=== PATIENT | female | born 1980 | race Caucasian/White ===

== ENCOUNTER 2016-12-11 21:41 | Emergency (ER) | payer OTHER ==
[2016-12-11 21:51] VITALS: BMI 22.1
--- NOTE | 2016-12-11 22:47 | PDOC ---
History of Present Illness - General History Source: Patient <Allen Ma - Last Filed: 12/12/16 00:37> - General History Source: Patient Exam Limitations: No Limitations - History of Present Illness Initial Comments: 12/11/16 23:08 The patient is a 36 year old 10.5 weeks female(), with no significant past medical history, who presents to the emergency department complaining of vaginal bleeding earlier this evening. The patient reports she was sitting at dinner with her , after which she got up and felt a gush of blood roll down her leg. The patient denies any heavy lifting or sexual relations prior. The patient reports she is not currently bleeding. She states she had an US with her OB/ TUBE CUTTER at 6 weeks, which showed a heart rate. The patient denies any associated abdominal pain, nausea, vomiting, diarrhea, or constipation. The patient denies any dysuria, hematuria, frequency, or urgency. Allergies: None reported. Past Surgical History: None reported. Social History: Non-smoker. Denies alcohol or drug use. <Fabby Camarena - Last Filed: 12/12/16 00:42> - General Chief Complaint: Vaginal Bleeding Stated Complaint: VAGINAL BLEEDING/10 WKS Time Seen by Provider: 12/11/16 21:48 Past History - Psycho/Social/Smoking Cessation Hx Suicidal Ideation: No Smoking History: Never smoked Have you smoked in the past 12 months: No Number of Cigarettes Smoked Daily: 0 Information on smoking cessation initiated: No Hx Alcohol Use: No Drug/Substance Use Hx: No <Allen Ma - Last Filed: 12/12/16 00:37> <Fabby Camarena - Last Filed: 12/12/16 00:42> - Past Medical History Allergies/Adverse Reactions: Allergies Allergy/AdvReac Type Severity Reaction Status Date / Time No Known Allergies Allergy Verified 12/11/16 21:49 Home Medications: Ambulatory Orders Pnv95/Ferrous Fumarate/FA [ Caplet] 1 tab PO DAILY 12/11/16 Review of Systems - Review of Systems Able to Perform ROS?: Yes Comments:: 12/11/16 23:09 CONSTITUTIONAL: Absent: fever, no chills, no fatigue EYES: Absent: visual changes ENT: Absent: ear pain, no sore throat CARDIOVASCULAR: Absent: chest pain, no palpitations RESPIRATORY: Absent: cough, no SOB GI: Absent: abdominal pain, no nausea, no vomiting, no constipation, no diarrhea GENITOURINARY: Present: +vaginal bleeding Absent: dysuria, no frequency, no hematuria MUSKULOSKELETAL: Absent: back pain, no arthralgia, no myalgia SKIN: Absent: rash NEURO: Absent: headache <Yvette Camarenakunalmeaghan - Last Filed: 12/12/16 00:42> *Physical Exam - Vital Signs Last Vital Signs Temp Pulse Resp BP Pulse Ox 98.0 F 59 L 14 125/72 98 12/11/16 21:49 12/11/16 21:49 12/11/16 21:49 12/11/16 21:49 12/11/16 21:49 <Allen Ma - Last Filed: 12/12/16 00:37> - Vital Signs Last Vital Signs Temp Pulse Resp BP Pulse Ox 98.0 F 59 L 14 125/72 98 12/11/16 21:49 12/11/16 21:49 12/11/16 21:49 12/11/16 21:49 12/11/16 21:49 - Physical Exam Comments: 12/11/16 23:09 GENERAL: Well-appearing, well-nourished. No apparent distress. HEENT: Normocephalic, atraumatic. PERRL, EOM intact. CARDIOVASCULAR: Normal S1, S2. Regular rate and rhythm. PULMONARY: Clear to auscultation bilaterally. ABDOMEN: Soft, non-distended, non-tender. EXTREMITIES: Normal ROM in all four extremities. No gross deformities. SKIN: Warm, dry. No rash NEUROLOGICAL: No focal neurological deficits. <Fabby Camarena - Last Filed: 12/12/16 00:42> ED Treatment Course - LABORATORY CBC & Chemistry Diagram: 12/11/16 23:15 12/11/16 23:15 <Allen Ma - Last Filed: 12/12/16 00:37> - LABORATORY CBC & Chemistry Diagram: 12/11/16 23:15 12/11/16 23:15 - RADIOLOGY Radiograph Interpretation: 12/12/16 00:35 EXAM: Pelvic US INTERPRETED BY: Dr. Segovia REVIEWED BY: Dr. Ma IMPRESSION: There is a single live intrauterine gestation. heart rate 175 beats per minute. Approximate age of 10 weeks, 5 days by mean crown-rump length of 3.78 cm. Amniotic fluid volume appears adequate. No evidence of subchorionic hemorrhage. There is a left ovarian cyst measuring 2.8 x 1.8 x 2.0 cm. Small follicle noted in the right ovary measuring 1.2 cm. There is flow present in both ovaries on color Doppler evaluation. No adnexal masses visualized. No free fluid. <Fabby Camarena - Last Filed: 12/12/16 00:42> Medical Decision Making - Medical Decision Making 12/12/16 00:38 Dr. Ma: The scribe's documentation has been prepared under my direction and personally reviewed by me in its entirery. I confirm that the note above accurately reflects all work, treatment, procedures, and medical decision making performed by me. patient with IUP 10 weeks 5 days. patient will be discharged follow up with her MECHANIC DRIVER <Allen Ma - Last Filed: 12/12/16 00:37> *DC/Admit/Observation/Transfer - Discharge Dispostion Admit: No <Allen Ma - Last Filed: 12/12/16 00:37> - Attestations Scribe Attestion: 12/11/16 23:09 Documentation prepared by Fabby Camarena, acting as medical appliance maker for Allen Ma DO. <Fabby Camarena - Last Filed: 12/12/16 00:42> Diagnosis at time of Disposition: Vaginal bleeding Qualifiers: Weeks of gestation: 10 weeks Qualified Code(s): Z3A.10 - 10 weeks gestation of - Patient Instructions Printed Discharge Instructions: Managing Symptoms of , DI for Vaginal Bleeding During Additional Instructions: please follow-up with her supervisor blast furnace as soon as possible. No heavy lifting or sexual relations until you are cleared by your MECHANIC DRIVER.
[2016-12-11 23:53] LABS: BASOPHIL 0.4 % (0-2.0); EOSINOPHIL 1.9 % (0-4.5); MCH 32.4 pg (25.7-33.7); MCHC 33.9 g/dl (32.0-36.0); MEAN CELL VOLUME 95.7 fl (80-96); MEAN PLT VOLUME 9.6 fl (7.5-11.1); NEUTROPHILS 59.4 % (42.8-82.8); PLATELET COUNT 244 K/MM3 (134-434); RDW 13.6 % (11.6-15.6)
[2016-12-12 00:18] LABS: URINE APPEARANCE CLEAR; URINE BILIRUBIN NEGATIVE (NEGATIVE); URINE COLOR STRAW; URINE GLUCOSE (UA) NEGATIVE (NEGATIVE); URINE KETONE NEGATIVE (NEGATIVE); URINE NITRITE NEGATIVE (NEGATIVE); URINE PROTEIN NEGATIVE (NEGATIVE); URINE UROBILINOGEN NEGATIVE E.U./dl (0.2-1.0)
[2016-12-12 00:21] LABS: URINE BLOOD 2+ (NEGATIVE); URINE LEUK ESTERASE 2+ (NEGATIVE)
[2016-12-12 00:27] LABS: URINE BACTERIA RARE /hpf (NONE SEEN); URINE RBC 5 /hpf (0-3); URINE WBC 6 /hpf (3-5)
[2016-12-12 00:33] LABS: ALBUMIN 3.3 g/dl (3.4-5.0); ANION GAP 9 (8-16); BILIRUBIN,TOTAL 0.1 mg/dL (0.2-1.0); CALCIUM 8.9 mg/dL (8.5-10.1); CO2 26 mmol/L (21-32); CREATININE 0.6 mg/dL (0.55-1.02); GLUCOSE,RANDOM 85 mg/dL (74-106); SGOT/AST 14 U/L (15-37); SGPT/ALT 23 U/L (12-78); TOT PROT 6.1 g/dl (6.4-8.2)
[2016-12-12 00:48] LABS: ALK PHOS 40 U/L (45-117)
[2016-12-12 00:53] VITALS: BP 110/66; PULSE 45; TEMP 98
== END 2016-12-12 00:53 | disposition home or self-care (01) ==
LOC: JER 21:41
DX: O26.891 Other specified pregnancy related conditions, first trimester (principal); N93.9 Abnormal uterine and vaginal bleeding, unspecified; Z3A.10 10 weeks gestation of pregnancy
CPT/HCPCS: 36415; 76801-TC; 80053; 81003; 81015; 84702; 85025; 85610; 86850; 86900; 86901; 99281-25